=== PATIENT | male | born 1945 | race Caucasian/White ===

== ENCOUNTER 2018-08-12 14:03 | Emergency (ER) | payer OTHER ==
[2018-08-12 14:44] VITALS: BP 118/64
--- NOTE | 2018-08-12 15:16 | UC ---
Lower Extremity/Ankle HPI - HPI Summary HPI Summary: 73 yo male with left lower ext pain/redness x 1 day fever/chills had hip replacement 01/19 just arrived home from [place] hx prostate CA - History of Current Complaint Chief Complaint: UCSkin Stated Complaint: FEVER,RIGHT LOWER LEG CONCERN Time Seen by Provider: 08/12/18 14:54 Hx Obtained From: Patient Onset/Duration: Gradual Onset, Lasting Days Severity Initially: Mild Severity Currently: Moderate Pain Intensity: 0 Pain Scale Used: 0-10 Numeric Aggravating Factor(s): Standing, Ambulation Alleviating Factor(s): Rest Able to Bear Weight: Yes - Allergies/Home Medications Allergies/Adverse Reactions: Allergies Allergy/AdvReac Type Severity Reaction Status Date / Time No Known Allergies Allergy Verified 08/12/18 14:36 Home Medications: Home Medications Calcium Polycarbophil TAB* [Fibercon TAB*] 625 mg PO BID 08/12/18 [History Confirmed 08/12/18] Cholecalciferol TAB* [Vitamin D TAB*] 2,000 unit PO DAILY 08/12/18 [History Confirmed 08/12/18] Ear[place]art-3 Fatty Acids (Nf) [Fish Oil (NF)] 1,000 mg PO DAILY 08/12/18 [History Confirmed 08/12/18] Vit C/E/Zn/Coppr/Lutein/Zeaxan [Preservision Areds 2 Softgel] 1 each PO BID 04/22 [History Confirmed 08/12/18] Vitamin THERAPEUTIC TAB* [Theragran TAB*] 1 tab PO DAILY 08/12/18 [History Confirmed 08/12/18] amLODIPine TAB* [Norvasc 5 mg TAB*] 5 mg PO DAILY 08/12/18 [History Confirmed ] PMH/Surg Hx/FS Hx/Imm Hx Previously Healthy: Yes Cardiovascular History: Hypertension Cancer History: Prostate Cancer - Surgical History Surgical History: Yes Surgery Procedure, Year, and Place: Right MOMO, 2018, [place]; Radical Prostatectomy, 2004, [place] - Family History Known Family History: Positive: Hypertension Negative: Cardiac Disease, Diabetes - Social History Alcohol Use: Occasionally Substance Use Type: None Smoking Status (MU): Never Smoked Tobacco Length of Time of Smoking/Using Tobacco: 1/2-3/4 PPD x 20 Years When Did the Patient Quit Smoking/Using Tobacco: ~1987 Review of Systems All Other Systems Reviewed And Are Negative: Yes Constitutional: Positive: Fever, Chills, Fatigue Skin: Positive: Negative Eyes: Positive: Negative ENT: Positive: Negative Respiratory: Positive: Negative Cardiovascular: Positive: Negative Gastrointestinal: Positive: Negative Genitourinary: Positive: Negative Motor: Positive: Negative Neurovascular: Positive: Negative Musculoskeletal: Positive: Calf Tenderness, Edema Neurological: Positive: Negative Psychological: Positive: Negative Physical Exam Triage Information Reviewed: Yes Appearance: Well-Appearing, No Pain Distress, Well-Nourished Vital Signs: Initial Vital Signs Temp 98.2 F 08/12/18 14:36 Pulse 86 08/12/18 14:36 Resp 18 08/12/18 14:36 BP 118/64 08/12/18 14:36 Pulse Ox 97 08/12/18 14:36 Vital Signs Reviewed: Yes Eyes: Positive: Conjunctiva Clear ENT: Positive: Hearing grossly normal. Negative: Nasal congestion, Nasal drainage, Tonsillar swelling, Tonsillar exudate, Trismus, Muffled voice, Hoarse voice, Dental tenderness, Sinus tenderness Neck: Positive: Supple, Nontender, No Lymphadenopathy Respiratory: Positive: Lungs clear, Normal breath sounds, No respiratory distress, No accessory muscle use Cardiovascular: Positive: RRR, No Murmur Musculoskeletal: Positive: Edema @ - left calf, red, swollen, tender Neurological: Positive: Alert Psychological Exam: Normal Skin Exam: Normal Lower Extremity Course/Dx - Course Course Of Treatment: voiced my concern to pt of DVT vs cellulitis. called [facility] ER asn spoke to Rebecca Padilla NP. declines EMS - Differential Dx/Diagnosis Provider Diagnosis: Leg edema, right Discharge - Sign-Out/Discharge Documenting (check all that apply): Patient Departure All imaging exams completed and their final reports reviewed: No Studies - Discharge Plan Condition: Stable Disposition: TRANS HIGHER LVL OF CARE FAC Referrals: Brittany Choudhary MD [Primary Care Provider] - Additional Instructions: TO [facility] ER now I spoke to Rebecca Padilla NP and they are expecting - Billing Disposition and Condition Condition: STABLE Disposition: Trans Higher Lvl of Care Fac
== END 2018-08-12 15:16 | disposition short-term general hospital (02) ==
LOC: UCCORT 14:03
DX: R60.0 Localized edema (principal); M79.605 Pain in left leg; R23.8 Other skin changes; R50.9 Fever, unspecified; I10 Essential (primary) hypertension; Z79.899 Other long term (current) drug therapy; Z96.641 Presence of right artificial hip joint; Z85.46 Personal history of malignant neoplasm of prostate; Z87.891 Personal history of nicotine dependence
CPT/HCPCS: 99202; G0463

== ENCOUNTER 2019-04-24 13:43 | Emergency (ER) | payer OTHER ==
--- OUTSIDE RECORDS SUMMARY | 2019-04-24 14:37 | XMS REPORT | Summary of Care ---
:1945 Author Organization [facility] Address [address] [place] [address] Care Team Providers Name Role Phone Brittany Choudhary MD Primary Care Provider Encounter Details Date Type Department Care Team Description 04/11/2019 Procedure visit Rohan Hayden Prostate cancer Oncology MD Silvia (Primary Dx) [address] [facility] [address] [facility] [address] [place] [id number] Allergies No Known Allergiesdocumented as of this encounter (statuses as of 04/11/2019) Medications Medication Sig Dispensed Refills Start Date End Date Status amlodipine (NORVASC) 5 TAKE 1 TABLET 0 07/11/2006 Active MG tablet DAILY. sildenafil (VIAGRA) 100 1 PO 1 hour 0 02/28/2016 Active MG tablet prior to sexual activity Psyllium (FIBER) 0.52 g Take 2 capsules 0 Active CAPS by mouth Multiple Vitamin (DAILY Take 1 tablet by 0 Active CADEN) per tablet mouth [place]-3 Fatty Acids Take 1 capsule 0 Active (FISH OIL PO) by mouth Cholecalciferol (VITAMIN Take 2,000 Units 0 Active D) 2000 units tablet by mouth Multiple Take by mouth 0 Active Vitamins-Minerals (OCUVITE PRESERVISION PO) Ibuprofen (ADVIL PO) Take by mouth 0 Active PREVIDENT 5000 PLUS 1.1 0 10/16/2018 Active % CREA documented as of this encounter (statuses as of 04/11/2019) Active Problems Problem Noted Date Prostate CA 09/28/2017 Cancer Staging: Pathologic stage from 09/28/2017: Stage IIB (rpT2, pN0, cM0, PSA : 4.3, Grade Group: 2) - Signed by Tomas Waldron MD on 10/24/2017 documented as of this encounter (statuses as of 04/11/2019) Social History Tobacco Use Types Packs/Day Years Used Date Former Smoker Cigarettes 0.5 1960 - 1984 Smokeless Tobacco: Never Used Alcohol Use Drinks/Week oz/Week Comments Yes Rare Sex Assigned at Date Recorded Not on file Job Start Date Occupation Industry Not on file Not on file Not on file Travel History Travel Start Travel End No recent travel history available. documented as of this encounter Last Filed Vital Signs Vital Sign Reading Time Taken Comments Blood Pressure - - Pulse - - Temperature - - Respiratory Rate - - Oxygen Saturation - - Inhaled Oxygen Concentration - - Weight 107.2 kg (236 lb 6.4 oz) 04/11/2019 1:24 PM EST Height - - Body Mass Index 33.92 09/28/2017 10:45 AM EDT documented in this encounter Progress Notes Rohan Caicedo MD - 04/11/2019 1:00 PM EST Radiation Oncology On-Treatment Visit Note Srinivas is currently undergoing a course of Radiation Therapy. He was seen by me after treatment today. Image Guided Radiation Therapy imaging reviewed. Diagnosis: Cancer Staging Prostate CA Staging form: Prostate, AJCC 8th Edition - Pathologic stage from 09/28/2017: Stage IIB (rpT2, pN0, cM0, PSA: 4.3, Grade Group: 2) - Signed by Tomas Waldron MD on 10/24/2017 ECOG Performance Status: 0 - Asymptomatic Prior Therapy: Treatment Site: prostate bed Treatment intent: Definitive Dose in cGy No. of fractions Current Dose 5940 33 Prescribed Dose 6840 38 There is a planned External beam boost boost. He is not receiving concurrent systemic therapy. No flowsheet data found. Vitals: Vitals - 1 value per visit 03/21/2019 03/28/2019 04/11/2019 SYSTOLIC - - - DIASTOLIC - - - PULSE - - - TEMPERATURE - - - RESPIRATIONS - - - Weight (kg) 107.321 kg 107.049 kg 107.23 kg HEIGHT - - - SPO2 - - - BODY MASS INDEX 33.95 kg/m2 33.86 kg/m2 33.92 kg/m2 PAIN SCALE - SCORE 0 - - Medications: Current Outpatient Medications Medication Sig Dispense Refill amlodipine (NORVASC) 5 MG tablet TAKE 1 TABLET DAILY. Cholecalciferol (VITAMIN D) 2000 units tablet Take 2,000 Units by mouth Ibuprofen (ADVIL PO) Take by mouth Multiple Vitamin (DAILY CADEN) per tablet Take 1 tablet by mouth Multiple Vitamins-Minerals (OCUVITE PRESERVISION PO) Take by mouth [place]-3 Fatty Acids (FISH OIL PO) Take 1 capsule by mouth PREVIDENT 5000 PLUS 1.1 % CREA Psyllium (FIBER) 0.52 g CAPS Take 2 capsules by mouth sildenafil (VIAGRA) 100 MG tablet 1 PO 1 hour prior to sexual activity No current facility-administered medications for this visit. Clinical Evaluation: Subjective He is tolerating therapy without difficulty. He reports no reaction to radiation therapy. Energy level is good . No bowel or bladder problems . Image Review Reviewed images have been satisfactory. Changes made as necessary. Impression and Plan: Srinivas is tolerating radiation therapy as expected. Rohan Caicedo M.D. We reviewed what to expect from ongoing treatment. He was counseled, encouraged , and questions wereaddressed. We will continue radiation therapy as planned. documented in this encounter Plan of Treatment Health Maintenance Due Date Last Done Comments Hepatitis C Screening (B. 1945 [id number]) MMR Vaccines (1 of 1 - 1946 Standard series) Colon Cancer Screening 10 yrs 1995 Zoster Vaccines (1 of 2) 1995 Pneumococcal Vaccine: 65+ 2010 Years (1 of 2 - PCV13) DTaP,Tdap,and Td Vaccines (3 12/02/2014 06/04/2014, - Td) 09/03/2006 Influenza Vaccine 03/04/2019 HIB Vaccines Aged Out No longer eligible based on patient's age to complete this topic Hepatitis A Vaccines Aged Out No longer eligible based on patient's age to complete this topic Hepatitis B Vaccines Aged Out No longer eligible based on patient's age to complete this topic IPV Vaccines Aged Out No longer eligible based on patient's age to complete this topic Pneumococcal Vaccine: Aged Out No longer eligible based Pediatrics (0 to 5 Years) and on patient's age to At-Risk Patients (6 to 64 complete this topic Years) Varicella Vaccines Aged Out No longer eligible based on patient's age to complete this topic documented as of this encounter Results Not on filedocumented in this encounter Visit Diagnoses Diagnosis Prostate cancer - Primary Malignant neoplasm of prostate documented in this encounter
[2019-04-24 14:45] VITALS: BP 106/66
--- NOTE | 2019-04-24 14:57 | UC ---
HPI Febrile Illness - HPI Summary HPI Summary: Patient presents to urgent care with his bowels. Patient is a 74-year-old gentleman with a history of remote prostate cancer were however he completed radiation this past Sunday and hypertension. Patient states this morning when he woke up he was a little more tired than normal. Patient early afternoon he developed shaking chills. Patient spiked a temperature to 103.4. Patient's gave him 1 g of Tylenol at 1 PM. Patient states he called his doctor who recommended he get checked. Patient denies chest pain or shortness of breath. Patient denies abdominal pain. Patient denies diarrhea. Patient states he has made some urine today but not much. Patient does states darker than normal. Patient has had really little to drink as he just is not thirsty and has no energy. Patient states he generally feels a little bit weak. Patient did get the flu vaccine on Sunday. Medications reviewed. No diabetes no prednisone. 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 Pain Intensity: 0 - Allergy/Home Medications Allergies/Adverse Reactions: Allergies Allergy/AdvReac Type Severity Reaction Status Date / Time No Known Allergies Allergy Verified 04/24/19 14:45 PMH/Surg Hx/FS Hx/Imm Hx Previously Healthy: Yes Cardiovascular History: Hypertension - Surgical History Surgical History: Yes Surgery Procedure, Year, and Place: Right MOMO, 2017, [place]; Radical Prostatectomy, 2004, [place] - Family History Known Family History: Positive: Hypertension Negative: Cardiac Disease, Diabetes - Social History Occupation: Retired Lives: With Family Alcohol Use: Occasionally Substance Use Type: None Smoking Status (MU): Never Smoked Tobacco Length of Time of Smoking/Using Tobacco: 1/2-3/ PPD x 20 Years When Did the Patient Quit Smoking/Using Tobacco: ~1987 Review of Systems All Other Systems Reviewed And Are Negative: Yes Constitutional: Positive: Fever, Fatigue Eyes: Positive: Negative ENT: Positive: Other - mm dry Respiratory: Positive: Negative Cardiovascular: Positive: Negative Gastrointestinal: Positive: Negative Genitourinary: Positive: Negative Physical Exam - Summary Physical Exam Summary: Vital Signs Reviewed: Yes A+Ox3, no distress, tired appearing, ambulatory Eyes: Conjunctiva Clear, KOJO. EOM intact and full ENT: Hearing grossly normal bilateral cerumen impaction, lips dry, mmmpasty uvula midline, no exudate, no erythema Neck: Positive: Supple Respiratory: Positive: No respiratory distress, No accessory muscle use + CTA throughout no w/r Cardiovascular: RRR, borderline tachy, no m/r nl s1, s2 no m/r CBT <2 sec abd soft + BS nt/nd no guarding, no distension Musculoskeletal Exam: GARCIA x 4 without difficulty Strength Intact, ROM Intact Neurological: Positive: Alert, + sensation throughout Psychological: Positive: Normal Response To examiner Skin: Positive: no rash, no ecchymosis Triage Information Reviewed: Yes Vital Signs: Initial Vital Signs Temp 101.1 F 04/24/19 14:37 Pulse 115 04/24/19 14:37 Resp 16 04/24/19 14:37 BP 106/66 04/24/19 14:37 Pulse Ox 97 04/24/19 14:37 Diagnostics - Radiology No standard instances Radiology Interpretation Completed By: Radiologist - Patient Name: JASON BUSTAMANTE Medical Record#: [id number] Ordering Physician: Trina Bethea MD Acct.#: [id number] : Age: 74 Sex: M Location: [facility] Exam Date: 04/24/19 1510 ADM Status: [facility] ER Order Information: CHEST PA & LAT 2 VWS Accession Number: [id number] CPT: 86641 INDICATION: Fever. COMPARISON: There are no prior studies available for comparison. TECHNIQUE: Dual-energy PA and lateral views of the chest were obtained. FINDINGS: The heart is within normal limits in size. Mediastinal and hilar contours appear within normal limits. The lungs are clear. No pleural effusion is seen. IMPRESSION: NO EVIDENCE FOR ACTIVE CARDIOPULMONARY DISEASE. <Electronically signed by Roberto Marin MD in OV> 04/24/19 1601 Dictated By: Roberto Marin MD Dictated Date/Time: 04/24/19 1600 Transcribed Date/Time: 04/24/19 1600 Copy to: CC:Trina Bethea MD; Brittany Choudhary MD Imaging - [facility] - [facility] [address] [address] ph ([phone]) ph ([phone]) ph ([phone] ) This report is only to be considered final once signed by the Provider(s) as displayed in the "<Electronically Signed by >" field (s). Absence of a signature indicates the report is in a draft status and still needs to be finalized. In the event this document was created by someone other than the signing Provider, the individual initiating the document will be listed in the "Entered by:" or "Dictated by:" rizzo. 1 of 1 Re-Evaluation - Re-Evaluation First Eval Comment: Patient's chest x-ray is negative for infection. Flu is negative. Patient has trace ketones but no overt urinary infection. Discussed with patient and spells recommending cartilage primary for further testing. Patient comfortable with plan. Patient does report he feels better following the Motrin. Report given tenderness practitioner kristine in the emergency department was where patient going by private car. Of note, RN did try to irrigate ears bilaterally but was unable due to the firmness of the cerumen. Recommend patient use [id number]-yrupcid Debrox and have them flushed at his PCP. Understanding the plan. Course/Dx - Course Course Of Treatment: Patient is a 74-year-old gentleman who presents to urgent care with his . Patient has completed a course of radiation for prostate cancer this past Sunday. Patient flew vaccine on Sunday. Patient states that history of hypertension but is not steroids or have diabetes. Patient states this morning he was little more tired and fatigued without much appetite. Patient states around noon he developed full body shaking chills and then developed a fever to 103.4. Patient's gave him Tylenol 1 PM. Patient states he just feels tired. He's got no appetite no energy has not been eating or drinking much today. Patient denies any pain. No cough no chest pain or shortness of breath. Patient has a very remote history of smoking but nothing recent. No history of COPD. On exam vital signs show a borderline blood pressure, elevated temperature, elevated heart rate. Patient is not hypoxic. Patient appears dry on exam but is mentating and is not toxic appearing. Patient does have bilateral cerumen impaction. Discussed with patient and his spouse at length. We'll check a flu, chest x-ray, and urine. Patient is very dehydrated with ketones will send him or department. The patient has pneumonia with unlabored department. If all testing is negative we'll send the emergency department. Patient and spouse comfortable in agreement with plan. If the fluid was positive and the patient is able to demonstrate drinking water here and is not overly dehydrated on his urine may give patient Tamiflu contact his PCP for follow-up tomorrow. Patient's spouse comfortable and in agreement. Test were ordered. Patient given Motrin and a bottle of water - Diagnoses Provider Diagnosis: Fever Discharge ED - Sign-Out/Discharge Documenting (check all that apply): Patient Departure All imaging exams completed and their final reports reviewed: Yes - Discharge Plan Condition: Good Disposition: HOME-RECOMMEND TO ED Patient Education Materials: Fever in Adults (ED) Referrals: Brittany Choudhary MD [Primary Care Provider] - Additional Instructions: The doctor that evaluated you today thinks that you need additional testing that can be completed the emergency department. It is recommended that you go directly to emergency department for further evaluation. This evaluation included blood work or imaging. This testing will be directed and decided by the provider that evaluates you at the emergency department. If pain becomes worse, you feel lightheaded, you have uncontrolled vomiting, or you have any other concerns while you are being driven to emergency department as recommended to pullover contact 911. You will be triaged and treated according to the process at the emergency department where you are evaluated. - Billing Disposition and Condition Condition: GOOD Disposition: Home-Recommend to ED
[2019-04-24] MEDS ORDERED: Ibuprofen TAB* 600 MG PO ONE (15:10)
[2019-04-24 15:22] LABS: Influenza A Molecular NEGATIVE (Negative); Influenza B Molecular NEGATIVE (Negative)
== END 2019-04-24 15:59 | disposition home health service (06) ==
LOC: UCCORT 13:43
DX: R50.9 Fever, unspecified (principal); H61.23 Impacted cerumen, bilateral; R53.83 Other fatigue; I10 Essential (primary) hypertension; Z85.46 Personal history of malignant neoplasm of prostate; Z90.79 Acquired absence of other genital organ(s)
CPT/HCPCS: 71046; 81003; 99213; A9270-GY; G0463